=== PATIENT | female | born 1975 ===

== ENCOUNTER 2019-11-19 12:45 | Outpatient (CLI) | payer MEDICAID ==
[~2019-11-19] VITALS: Ht 177.8 cm; Wt 61.7 kg
[2019-11-19 13:05] VITALS: BP 119/75
[2019-11-19] MEDS ORDERED: NO MEDICATION (16:05)
--- NOTE | 2019-11-20 08:44 | Consultation ---
DATE OF CONSULTATION: 11/19/2019 CHIEF COMPLAINT: Digestive problems, history of scleroderma, and GI complications. HISTORY OF PRESENT ILLNESS: This is a very pleasant 44-year-old female who was seen in the office for numerous medical complaints including abdominal pain, indigestion, not absorbing well, nausea, bloating. 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 She actually came with a paper from sheriff deputy asking for rectal manometry, lactose breath test, SmartPill study for GI motility which unfortunately we do not do any of them here in our office. PAST MEDICAL HISTORY: 1. UTI. 2. GERD. 3. Hemorrhoids. 4. History of cholecystitis, status post cholecystectomy. 5. IBS. 6. Fibromyalgia. PAST SURGICAL HISTORY: 1. Tonsillectomy. 2. Appendectomy. 3. Cholecystectomy. 4. Hysterectomy. FAMILY HISTORY: No family history of GI malignancies. SOCIAL HISTORY: The patient denies any tobacco, alcohol, or drug abuse. ALLERGIES: To multiple food allergies, antibiotic, erythromycin. REVIEW OF SYSTEMS: Positive for abdominal pain, nausea, and bloating. PHYSICAL EXAMINATION: VITAL SIGNS: Temperature 97, blood pressure is 119/75, pulse is 75, respirations 20 . HEENT: Normocephalic and atraumatic. Sclerae anicteric. NECK: Supple. No evidence of obvious lymphadenopathy. CARDIOVASCULAR: Regular rate and rhythm. Plus S1 and S2. LUNGS: Clear to auscultation bilaterally. ABDOMEN: Positive bowel sounds. Soft and nontender. No rebound. No guarding. No peritoneal sign. EXTREMITIES: No cyanosis. No clubbing. No edema. 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 She has been taking a lot of digestive enzymes without much improvement. As I mentioned, she has the paper from the sheriff deputy requiring rectal manometry, lactose breath test, and SmartPill study for GI motility. At this time, we do not do any of those tests in our office. I think the patient will benefit from the motility clinic consultation around here, the one that I am familiar with is [facility] that they have good motility center. We recommend the patient to go and be evaluated by motility center for workup of her symptoms, especially small intestine symptoms that she has been having with malabsorption. Apparently, the patient is allergic to some probiotics and according to her she is not working. I do not have any laboratory results in front of me, but according to the labs she is overall okay. So our recommendation is for this patient to be seen by a motility center. Noam Hoffman M.D. DR: Jett JOB#: [id number] CC:
== END 2019-11-19 15:35 | disposition home or self-care (01) ==
LOC: PAN 12:45
DX: K90.9 Intestinal malabsorption, unspecified (principal); K21.9 Gastro-esophageal reflux disease without esophagitis; Z90.49 Acquired absence of other specified parts of digestive tract; M79.7 Fibromyalgia; Z90.89 Acquired absence of other organs; Z90.710 Acquired absence of both cervix and uterus; M34.9 Systemic sclerosis, unspecified
CPT/HCPCS: G0463